=== PATIENT | female | born 1950 | race African-American/Black ===

== ENCOUNTER 2018-06-07 07:18 | Inpatient (IN) ==
--- NOTE | 2018-06-07 08:03 | ED ---
HPI General Chief Complaint: Shortness of Breath/Dyspnea Stated Complaint: resp Time Seen by Provider: 06/07/18 07:23 History of Present Illness The patient was seen and examined in the presence of the nurse. This patient complains of shortness of breath. Duration is 2 days. She reports that she has had CHF exacerbations before and feel like this is the same thing. She is a dialysis patient who is supposed to dialyze today. She did not make it to dialysis. This morning she was trying to get to the bathroom and having diarrhea and was short of breath so called 911. She has had diarrhea for 3 weeks now and had negative stool studies per her report. Is not having chest pain or syncope or abdominal pain. She does have a dry cough. No fever. Symptom severity is moderate. No alleviating factors. She is a smoker. No exacerbating factors. Related Data Home Medications Medication Instructions Recorded Confirmed hydralazine 100 mg PO DAILY 04/22/18 06/07/18 hydrocodone-acetaminophen 1 tab PO Q4HR 04/22/18 06/07/18 labetalol 300 mg PO DAILY 04/22/18 06/07/18 omeprazole 20 mg PO DAILY 04/22/18 06/07/18 sevelamer carbonate [Renvela] 800 mg PO QID 04/22/18 06/07/18 Previous Rx's Medication Instructions Recorded oxycodone-acetaminophen [Percocet] 1 tab PO Q4HR #40 tab 04/22/18 Allergies Allergy/AdvReac Type Severity Reaction Status Date / Time Penicillins Allergy Rash Verified 06/07/18 07:35 Review of Systems ROS: all other systems reviewed are negative [facility] Medical History Medical History A-V fistula (Acute) COPD (chronic obstructive pulmonary disease) (Acute) History of blood product transfusion (Acute) Pacemaker (Acute) Renal failure (Acute) Social History Social History Substance History: No History of Abuse Second Hand Smoke Exposure: No Smoking Status: Current every day smoker Tobacco Type: Cigarettes How Often Do You Have a Drink Containing Alcohol: Never Recent Travel in [facility] within the Last 8 Weeks: No Recent Out of Country Travel within the Last 8 Weeks: No Immunization History Tetanus Immunization: >5 Years Exam Narrative Exam Narrative: GENERAL: Well-nourished, well-developed patient in no apparent distress. SKIN: Focused skin assessment reveals no rash and nodules. Skin is Warm and dry. HEAD: Atraumatic. Normocephalic. EYES: Pupils equal and round. No scleral icterus. No injection or drainage. ENT: No nasal bleeding or discharge. Mucous membranes pink and moist. NECK: Trachea midline. No JVD. CARDIOVASCULAR: Regular rate and rhythm that is intermittently irregular or having ectopic beats. No murmur appreciated. RESPIRATORY: No accessory muscle use. Scattered rhonchi . Breath sounds equal bilaterally. GASTROINTESTINAL: Abdomen soft, non-tender, nondistended. Hepatic and splenic margins not palpable. MUSCULOSKELETAL: No obvious deformities. No clubbing. No cyanosis. No edema. NEUROLOGICAL: Awake and alert. No obvious cranial nerve deficits. Motor grossly within normal limits. Normal speech. PSYCHIATRIC: Appropriate mood and affect; insight and judgment seems a bit weak. Course Initial Documented Vital Signs Temperature 98.0 F 06/07/18 07:25 Pulse Rate 96 H 06/07/18 07:25 Respiratory Rate 24 06/07/18 07:25 Blood Pressure 130/76 06/07/18 07:25 Pulse Oximetry 99 06/07/18 07:25 Last Documented Vital Signs Temperature 98.0 F 06/07/18 07:25 Pulse Rate 69 06/07/18 09:14 Respiratory Rate 20 06/07/18 09:14 Blood Pressure 141/69 H 06/07/18 09:14 Pulse Oximetry 97 06/07/18 09:14 Medical Decision Making [facility] Narrative Medical decision making narrative: 67-year-old dialysis patient who came here instead of going to dialysis due to shortness of breath and she was feeling lightheaded after some diarrhea. I have ordered some studies to include lab studies and EKG and chest x-ray. She has no basilar crackles nor peripheral edema. Chest x-ray does show moderate congestive failure. She will need dialysis to fix this. I placed multiple calls to her rn chemical dependency Dr. Leigh and they have not been returned so far. I spoke with the hospitalist Dr. Oden who will admit, he recommends admit status, he will call the rn chemical dependency on cell phone. Patient has anemia and renal failure as expected. She also has some thrombocytopenia. Medical Screen Exam Complete: Yes Emergency Medical Condition: Yes Differential Diagnosis Differential Diagnosis: Pulmonary edema, pneumonia, COPD Medical Records Medical records reviewed: Yes I reviewed the patient's medical records. Lab Data Lab results reviewed: Yes I reviewed the patient's lab results. Lab results narrative: She has anemia and renal failure Result diagrams: 06/07/18 07:55 06/07/18 07:55 Lab Results 06/07/18 06/07/18 06/07/18 Range/Units 07:55 07:55 07:55 WBC 8.0 (4.0-11.0) th/mm3 RBC 3.19 L (4.00-5.30) mil/mm3 Hgb 10.3 L (11.6-15.3) gm/dL Hct 31.8 L (35.0-46.0) % MCV 99.6 (80.0-100.0) fL MCH 32.4 (27.0-34.0) pg MCHC 32.5 (32.0-36.0) % RDW 16.3 (11.6-17.2) % Plt Count 122 L (150-450) th/mm3 MPV 9.0 (7.0-11.0) fL Neut % (Auto) 86.4 H (16.0-70.0) % Lymph % (Auto) 4.9 L (9.0-44.0) % Maries % (Auto) 8.2 H (0.0-8.0) % Eos % (Auto) 0.2 (0.0-4.0) % Baso % (Auto) 0.3 (0.0-2.0) % Neut # (Auto) 6.9 (1.8-7.7) th/mm3 Lymph # (Auto) 0.4 L (1.0-4.8) th/mm3 Maries # (Auto) 0.7 (0.0-0.9) th/mm3 Eos # (Auto) 0.0 (0.0-0.4) th/mm3 Baso # (Auto) 0.0 (0.0-0.2) th/mm3 WBC Differential . Differential Comment Auto diff final Sodium 140 (136-145) meq/L Potassium 4.2 (3.5-5.1) meq/L Chloride 109 H (98-107) meq/L Carbon Dioxide 21.5 (21.0-32.0) meq/L Anion Gap 10 (5-15) meq/L BUN 29 H (7-18) mg/dL Creatinine 8.24 H (0.50-1.00) mg/dL Estimated GFR 6 L (>89) mL/min Random Glucose 127 H (74-106) mg/dL Calcium 9.1 (8.5-10.1) mg/dL Total Bilirubin 0.8 (0.2-1.0) mg/dL AST 14 L (15-37) U/L ALT 20 (10-53) U/L Alkaline Phosphatase 256 H (45-117) U/L Total Creatine Kinase 31 Cancelled (26-192) U/L Troponin I 0.07 H (0.02-0.05) ng/mL B-Natriuretic Peptide (0-100) pg/mL Total Protein 6.7 (6.4-8.2) g/dL Albumin 2.9 L (3.4-5.0) g/dL 06/07/18 Range/Units 07:55 WBC (4.0-11.0) th/mm3 RBC (4.00-5.30) mil/mm3 Hgb (11.6-15.3) gm/dL Hct (35.0-46.0) % MCV (80.0-100.0) fL MCH (27.0-34.0) pg MCHC (32.0-36.0) % RDW (11.6-17.2) % Plt Count (150-450) th/mm3 MPV (7.0-11.0) fL Neut % (Auto) (16.0-70.0) % Lymph % (Auto) (9.0-44.0) % Maries % (Auto) (0.0-8.0) % Eos % (Auto) (0.0-4.0) % Baso % (Auto) (0.0-2.0) % Neut # (Auto) (1.8-7.7) th/mm3 Lymph # (Auto) (1.0-4.8) th/mm3 Maries # (Auto) (0.0-0.9) th/mm3 Eos # (Auto) (0.0-0.4) th/mm3 Baso # (Auto) (0.0-0.2) th/mm3 WBC Differential Differential Comment Sodium (136-145) meq/L Potassium (3.5-5.1) meq/L Chloride (98-107) meq/L Carbon Dioxide (21.0-32.0) meq/L Anion Gap (5-15) meq/L BUN (7-18) mg/dL Creatinine (0.50-1.00) mg/dL Estimated GFR (>89) mL/min Random Glucose (74-106) mg/dL Calcium (8.5-10.1) mg/dL Total Bilirubin (0.2-1.0) mg/dL AST (15-37) U/L ALT (10-53) U/L Alkaline Phosphatase (45-117) U/L Total Creatine Kinase (26-192) U/L Troponin I (0.02-0.05) ng/mL B-Natriuretic Peptide 4534 H (0-100) pg/mL Total Protein (6.4-8.2) g/dL Albumin (3.4-5.0) g/dL Imaging Data Attestation: I personally reviewed and interpreted this imaging study as follows : My impression: X-ray shows moderate congestive failure Radiologist's impression: Chest X-Ray 06/07/18 07:49 CONCLUSION: Moderate congestive failure ECG Data EKG Prior to Arrival: No Attestation: I personally reviewed and interpreted this ECG as follows: Prior ECG tracings: not available for review Interpretation: EKG shows a rhythm of 75. ND interval 168 ms. She has pacer spikes throughout. QRS is wide-complex in inferior and lateral leads. Rhythm is irregular and difficult to ascertain. Discharge Plan Discharge Order Discharge Orders: ED Use Only Admit Order (Routine); Ordered 06/07/18 Ordered By: Ilia Briseno Physicians Team ED Provider: Ilia Briseno Primary Care Provider: Luis Bryant Rxs /Orders / Referrals /Forms Prescriptions: No Action hydrocodone-acetaminophen 10-325 mg Tablet 1 tab PO Q4HR RF: 0 hydralazine 100 mg Tablet 100 mg PO DAILY RF: 0 omeprazole 20 mg Capsule,Delayed Release(Dr/Ec) 20 mg PO DAILY RF: 0 labetalol 300 mg Tablet 300 mg PO DAILY RF: 0 sevelamer carbonate [Renvela] 800 mg Tablet 800 mg PO QID RF: 0 oxycodone-acetaminophen [Percocet] 5-325 mg Tablet 1 tab PO Q4HR Qty: 40 RF: 0 Discharge Interventions Interventions: Vital Signs Last Done: 06/07/18 09:14 Status ED Status: Admitted Patient
[2018-06-07 08:07] LABS: Baso % (Auto) 0.3 % (0.0-2.0); Eos % (Auto) 0.2 % (0.0-4.0); Hematocrit 31.8 % (35.0-46.0); Hemoglobin 10.3 gm/dL (11.6-15.3); Lymph # (Auto) 0.4 th/mm3 (1.0-4.8); Lymph % (Auto) 4.9 % (9.0-44.0); Mean Corpuscular HGB Conc 32.5 % (32.0-36.0); Mean Corpuscular Hemoglobin 32.4 pg (27.0-34.0); Mean Corpuscular Volume 99.6 fL (80.0-100.0); Mono # (Auto) 0.7 th/mm3 (0.0-0.9); Mono % (Auto) 8.2 % (0.0-8.0); Neut # (Auto) 6.9 th/mm3 (1.8-7.7); Neut % (Auto) 86.4 % (16.0-70.0); Platelet Count 122 th/mm3 (150-450); Red Blood Count 3.19 mil/mm3 (4.00-5.30); Red Cell Distribution Width 16.3 % (11.6-17.2)
[2018-06-07 08:20] LABS: Albumin 2.9 g/dL (3.4-5.0); Anion Gap 10 meq/L (5-15); Aspartate Aminotransferase 14 U/L (15-37); Blood Urea Nitrogen 29 mg/dL (7-18); Calcium 9.1 mg/dL (8.5-10.1); Carbon Dioxide 21.5 meq/L (21.0-32.0); Chloride 109 meq/L (98-107); Glomerular Filtration Rate 6 mL/min (>89); Glucose,Random 127 mg/dL (74-106); Potassium 4.2 meq/L (3.5-5.1); Sodium 140 meq/L (136-145)
[2018-06-07 08:21] LABS: Alanine Aminotransferase 20 U/L (10-53)
[2018-06-07 08:23] LABS: Alkaline Phosphatase 256 U/L (45-117); Total Protein 6.7 g/dL (6.4-8.2)
[2018-06-07 08:25] LABS: Troponin I 0.07 ng/mL (0.02-0.05)
[2018-06-07 08:26] LABS: Creatine Kinase 31 U/L (26-192)
--- NOTE | 2018-06-07 08:45 | XR ---
EXAM DATE: 06/07/2018 8:41 AM EST AGE/SEX: 67 years / Female INDICATIONS: Shortness of breath. CLINICAL DATA: This is the patient's initial encounter. Patient reports that signs and symptoms have been present for 3 days and indicates a pain score of 0/10. MEDICAL/SURGICAL HISTORY: . Renal failure, chronic. Chronic obstructive pulmonary disease. Pace maker. . COMPARISON: [facility] [place], CHEST 1V SINGLE AP, 04/22/2018. . FINDINGS: Pacemaker implanted in the left chest. The heart is enlarged. Moderate interstitial edema is present progressed from the comparison study. There is no pleural effusion. The portion of the bony skeleton visualized is unremarkable. Vascular stent in the right upper extremity. CONCLUSION: Moderate congestive failure Electronically signed by: Francisco Woods MD Board Certified Radiologist 06/07/2018 8:43 AM EST
[2018-06-07] MEDS ORDERED: Acetaminophen 325 MG Tablet PO PRN ×2 (11:13→11:20)
[2018-06-07] MEDS ORDERED: Sod Chloride 0.9% Inj 1,000 ML IV.CONT PRN (11:20)
[2018-06-07] MEDS ORDERED: Heparin 10,000 UNITS/10 ML Vial (for IV use) OTHER PRN (11:20)
[2018-06-07] MEDS ORDERED: Albumin Human 25% Inj 100 ML IV.SIG PRN (11:20)
[2018-06-07] MEDS ORDERED: Sod Chloride 0.9% Inj 1,000 ML OTHER PRN ×2 (11:20)
[2018-06-07] MEDS: Heparin - SQ 10,000 UNITS/ML Vial SQ SCH ×2 (12:02→20:41)
--- NOTE | 2018-06-07 12:34 | ECG ---
Date Performed: 06/07/2018 Time Performed: 07:53:30 PTAGE: 67 years EKG: ELECTRONIC PACEMAKER WITH INTERMITTENT AV PACING ABNORMAL ECG PREVIOUS TRACING : 04/22/2018 10.03 DOCTOR: Kevan Rodriguez Interpretating Date/Time 06/07/2018 12:33:12
--- NOTE | 2018-06-07 14:14 | P.HPIM ---
History of Present Illness Primary Care Physician: Luis Bryant Chief Complaint: Shortness of breath History of Present Illness: The patient is a 67-year-old female with a past medical history of end-stage renal disease on dialysis and COPD on home oxygen who is presenting to the hospital with shortness of breath. The patient states that at 5 AM she woke up this morning not being able to breathe. She felt like she had too much fluid in her body. She started coughing a lot which caused some chest pain from all of the coughing fits. She said she was due for dialysis today but she was unable to make it to her appointment because she could not breathe. She was seen in dialysis and is breathing much better at this time. She states that she would like some nebulizers. She is also complaining of chronic pain and is requesting pain medications. She says that she does ambulate but she has a hard time with stairs because of pain. She states she continues to smoke cigarettes, about 1 a day. She does use salt in her diet and realizes that she needs to use less. She states that she is on 2 L of nasal cannula at home. Inpatient Certification Inpatient Certification: I certify that the inpatient services were ordered in accordance with Medicare regulations governing the order. This includes certification that hospital inpatient services are reasonable and necessary and in the case of services not specified as inpatient-only under 42 CFR 419.22(n), that they are appropriately provided as inpatient services in accordance to with the 2-midnight benchmark under 43 CFR 412.3(e) Estimated Total Length of Stay (Days): 2 Plans for Post Hospital Care: Home Review of Systems Review of Systems: all other systems reviewed are negative [facility] Medical History Medical History Hypertension (Acute) A-V fistula (Acute) COPD (chronic obstructive pulmonary disease) (Acute) History of blood product transfusion (Acute) Pacemaker (Acute) Renal failure (Acute) Surgical History Surgical History History of surgery on upper extremity (Acute) Family History Family History Other Breast cancer Lung cancer Social History Social History Substance History: No History of Abuse Second Hand Smoke Exposure: No Smoking Status: Current every day smoker Tobacco Type: Cigarettes How Often Do You Have a Drink Containing Alcohol: Never Recent Travel in [place] within the Last 8 Weeks: No Recent Out of Country Travel within the Last 8 Weeks: No Immunization History Tetanus Immunization: >5 Years Medications and Allergies Allergies Allergy/AdvReac Type Severity Reaction Status Date / Time Penicillins Allergy Rash Verified 06/07/18 07:35 Home Medications Medication Instructions Recorded Confirmed Type hydralazine 100 mg PO DAILY 04/22/18 06/07/18 History hydrocodone-acetaminophen 1 tab PO Q4HR 04/22/18 06/07/18 History labetalol 300 mg PO DAILY 04/22/18 06/07/18 History omeprazole 20 mg PO DAILY 04/22/18 06/07/18 History sevelamer carbonate [Renvela] 800 mg PO QID 04/22/18 06/07/18 History Active Medications: Active Medications Acetaminophen (Tylenol) 650 mg PO Q4H PRN PRN Reason: Temp > 100.4, p 1-2 Acetaminophen (Tylenol) 650 mg PO UNSCH PRN PRN Reason: SEE LABEL COMMENTS Clonidine HCl (Catapres) 0.1 mg PO UNSCH PRN PRN Reason: SEE LABEL COMMENTS Diphenhydramine HCl (Benadryl) 25 mg PO UNSCH PRN PRN Reason: SEE LABEL COMMENTS Epoetin Vikram (Epogen Inj) 2,000 unit IV.PUSH UNSCH PRN PRN Reason: SEE LABEL COMMENTS Gelatin (Gelfoam 12 Mm/7 Mm Topical) 1 foam TOPICAL PRN PRN PRN Reason: help stop bleeding from site Heparin Sodium (Porcine) (Heparin Inj) 5,000 units SQ Q8H PATRICIA Last Admin: 06/07/18 12:02 Dose: 5,000 units Heparin Sodium (Porcine) (Heparin Inj) 8,000 units OTHER WITH DIALYSIS PRN PRN Reason: for machine prime Hydralazine HCl (Apresoline) 100 mg PO DAILY [facility] Albumin Human (Flexbumin 25% Inj) 100 mls @ 60 mls/hr IV.SIG WITH DIALYSIS PRN PRN Reason: hypotension / volume replace Sodium Chloride (Ns Inj) 1,000 mls @ 0 mls/hr OTHER .Q0M PRN PRN Reason: for prime and rinse back Sodium Chloride (Ns Inj) 1,000 mls @ 200 mls/hr OTHER .Q5H PRN PRN Reason: for dialyzer flush PRN Sodium Chloride (Ns Inj) 1,000 mls @ 0 mls/hr IV.CONT .Q0M PRN PRN Reason: hypotension / volume replace Labetalol HCl (Trandate) 300 mg PO DAILY [facility] Lactulose (Lactulose Liq) 30 ml PO DAILY PRN PRN Reason: SEVERE CONSITIPATION Mannitol (Mannitol Inj) 12.5 gm IV.PUSH UNSCH PRN PRN Reason: hypotension / volume replace Nitroglycerin (Nitrostat Sl) 0.4 mg SL Q5M PRN PRN Reason: CHEST PAIN Ondansetron HCl (Zofran Inj) 4 mg IV.PUSH UNSCH PRN PRN Reason: NAUSEA OR VOMITING Pantoprazole Sodium (Protonix) 20 mg PO DAILY [facility] Senna/Docusate Sodium (Mary-Colace) 1 tab PO BID [facility] Sevelamer Carbonate (Renvela) 800 mg PO QID [facility] Last Admin: 06/07/18 13:49 Dose: Not Given Sodium Chloride (Ns Flush) 2 ml IV.FLUSH PRN PRN PRN Reason: FLUSH AFTER USING IV ACCESS Sodium Chloride (Ns Flush) 2 ml IV.FLUSH BID PATRICIA Sodium Chloride (Ns Flush) 5 ml IV.FLUSH PRN PRN PRN Reason: flush each lumen during HD Physical Exam Vital signs: Vital Signs 06/07/18 07:25 06/07/18 08:03 06/07/18 08:04 Temperature 98.0 F Pulse Rate 96 H 90 Respiratory Rate 24 Blood Pressure 130/76 Pulse Oximetry 99 97 06/07/18 09:14 06/07/18 11:33 06/07/18 11:45 Temperature Pulse Rate 69 64 Respiratory Rate 20 20 Blood Pressure 141/69 H 143/87 H Pulse Oximetry 97 97 97 Intake & Output 06/06/18 06/07/18 06/07/18 18:59 06:59 18:59 Weight 58.967 kg Narrative: GENERAL: Well-nourished, well-developed patient in no apparent distress. SKIN: Focused skin assessment reveals no rash and nodules. Skin is warm and dry. HEAD: Atraumatic. Normocephalic. EYES: Pupils equal and round. No scleral icterus. No injection or drainage. ENT: No nasal bleeding or discharge. Mucous membranes pink and moist. NECK: Trachea midline. No JVD. CARDIOVASCULAR: Regular rate and rhythm. No murmur appreciated. RESPIRATORY: No accessory muscle use. Wheezing appreciated. GASTROINTESTINAL: Abdomen soft, mildly tender, nondistended. Hepatic and splenic margins not palpable. MUSCULOSKELETAL: No obvious deformities. No clubbing. No cyanosis. No edema. NEUROLOGICAL: Awake and alert. No obvious cranial nerve deficits. Motor grossly within normal limits. Normal speech. Results Labs CBC & Chem 7: 06/07/18 07:55 06/07/18 07:55 Imaging Impressions Chest X-Ray 06/07/18 07:49 CONCLUSION: Moderate congestive failure Caprini VTE Risk Assessment Caprini VTE Risk Assessment: Moderate/High Risk (score >= 2) Caprini Risk Assessment Model: Point Value = 1 Point Value = 2 Point Value = 3 Point Value = 5 Age 41-60 Minor surgery BMI > 25 kg/m2 Swollen legs Varicose veins or History of unexplained or recurrent spontaneous Oral contraceptives or hormone replacement Sepsis (< 1 month) Serious lung disease, including pneumonia (< 1 month) Abnormal pulmonary function Acute myocardial infarction Congestive heart failure (< 1 month) History of inflammatory bowel disease Medical patient at bed rest Age 61-74 Arthroscopic surgery Major open surgery (> 45 min) Laparoscopic surgery (> 45 min) Malignancy Confined to bed (> 72 hours) Immobilizing plaster cast Central venous access Age >= 75 History of VTE Family history of VTE Factor V Leiden Prothrombin [id number] Lupus anticoagulant Anticardiolipin antibodies Elevated serum homocysteine Heparin-induced thrombocytopenia Other congenital or acquired thrombophilia Stroke (< 1 month) Elective arthroplasty Hip, pelvis, or leg fracture Acute spinal cord injury (< 1 month) Prophylaxis Regimen: Total Risk Factor Score Risk Level Prophylaxis Regimen 0-1 Low Early ambulation 2 Moderate Order ONE of the following: *Sequential Compression Device (SCD) *Heparin 5000 units SQ BID 3-4 Higher Order ONE of the following medications: *Heparin 5000 units SQ TID *Enoxaparin/Lovenox 40 mg SQ daily (WT < 150 kg, CrCl > 30 mL/min) *Enoxaparin/Lovenox 30 mg SQ daily (WT < 150 kg, CrCl > 10-29 mL/min) *Enoxaparin/Lovenox 30 mg SQ BID (WT < 150 kg, CrCl > 30 mL/min) AND/OR *Sequential Compression Device (SCD) 5 or more Highest Order ONE of the following medications: *Heparin 5000 units SQ TID (Preferred with Epidurals) *Enoxaparin/Lovenox 40 mg SQ daily (WT < 150 kg, CrCl > 30 mL/min) *Enoxaparin/Lovenox 30 mg SQ daily (WT < 150 kg, CrCl > 10-29 mL/min) *Enoxaparin/Lovenox 30 mg SQ BID (WT < 150 kg, CrCl > 30 mL/min) AND *Sequential Compression Device (SCD) Assessment and Plan Plan Acute respiratory failure Secondary to volume overload from renal failure. Chest x-ray with moderate congestive failure. BNP elevated at 4534. She also has COPD and is on home oxygen. -Continue oxygen. -Dialysis for volume management. -Standing nebs. -Incentive spirometry. -Smoking cessation instruction. End-stage renal disease On dialysis. Nephrology consult appreciated. -Dialysis per nephrology. -Avoid nephrotoxins. -Continue Renvela. Chest pain The patient attributes it to coughing with her episode of severe shortness of breath. Initial troponin 0 0.07. EKG demonstrates a paced rhythm. -Trend troponins. -Telemetry. Hypertension Relatively well controlled. -Continue home hydralazine and labetalol. Anemia Secondary to end-stage renal disease. -Follow CBC. -Epogen as needed with dialysis. Hepatitis B Dialysis nurses reporting that the patient may be positive for hepatitis B. -Hepatitis profile pending. PPx: Heparin
[2018-06-07] MEDS ORDERED: LORazepam 0.5 MG Tablet PO PRN (15:24)
[2018-06-07] MEDS: Gelatin 12 MM/7 MM Topical Foam TOPICAL PRN (15:37)
[2018-06-07 16:05] LABS: ABG Base Excess 5.5 mmol/L (-2-2); ABG PCO2 33 mmHg (38-42); ABG PO2 40 mmHG (61-120)
--- NOTE | 2018-06-07 16:53 | P.CONNP ---
History of Present Illness Service: Nephrology Consult date: 06/07/18 Requesting Physician: Sanchez Kelley Reason for Consult: End-stage renal disease Primary Care Provider: Luis Bryant Chief Complaint: Shortness of breath History of Present Illness: Patient is a 67-year-old female with history of end-stage renal disease on dialysis, COPD, CHF, came in with increasing shortness of breath and was on BiPAP, patient goes on dialysis Thursday, Thursday and Thursday, she has a AV fistula in place, she was seen at the end of dialysis and was feeling better. Ultrafiltration of 3.5 L done. Review of Systems Constitutional: Reports body ache(s) Eyes: Denies blind spots, Denies blurry vision, Denies bulging eyes, Denies change in vision, Denies double vision, Denies discharge, Denies dry eyes, Denies floaters, Denies irritation, Denies itchy eyes, Denies loss of vision, Denies pain, Denies requires corrective lenses, Denies sensitivity to light, Denies other Ears, Nose, Mouth, and Throat: Denies abnormal hearing, Denies bleeding gums, Denies bad breath, Denies change in voice, Denies dental pain, Denies difficulty swallowing, Denies dizziness, Denies dry mouth, Denies ear discharge , Denies ear pain, Denies facial pain, Denies headache(s), Denies hearing loss, Denies hoarseness, Denies lip swelling, Denies nosebleed, Denies mouth lesions, Denies mouth pain, Denies nasal congestion, Denies nasal discharge, Denies nasal obstruction, Denies nasal trauma, Denies neck lump, Denies neck pain, Denies nose pain, Denies pain with swallowing, Denies poor balance, Denies post nasal drip, Denies ringing in the ears, Denies sinus pain, Denies sinus pressure , Denies sore throat, Denies throat swelling, Denies tongue swelling, Denies other Cardiovascular: Reports generalized swelling, Reports shortness of breath with activity Respiratory: Reports shortness of breath Genitourinary: Reports other (On dialysis) Musculoskeletal: Reports joint pain Skin/Breast: Reports other Neurologic: Reports weakness, Denies abnormal hearing, Denies abnormal movements , Denies abnormal speech, Denies abnormal walking, Denies behavioral changes, Denies burning sensations, Denies confusion, Denies dizziness, Denies fainting, Denies frequent falls, Denies headache(s), Denies lack of coordination, Denies localized weakness, Denies loss of vision, Denies memory loss, Denies numbness, Denies other visual disturbances, Denies radiating pain, Denies restless legs, Denies convulsions, Denies seizure-like activity, Denies sensory deficit, Denies tingling, Denies tingling/numbness/burning sensations, Denies tremor(s), Denies unsteadiness, Denies other Psychiatric: Denies abnormal sleep pattern, Denies anxiety, Denies behavioral changes, Denies change in appetite, Denies change in sex drive, Denies confusion , Denies depression, Denies difficulty concentrating, Denies hearing things others do not hear, Denies hopelessness, Denies irritability, Denies lack of enjoyment, Denies memory loss, Denies mood swings, Denies panic attacks, Denies paranoia, Denies seeing things others do not see, Denies sensing things others do not sense, Denies tactile hallucinations, Denies thoughts of hurting/killing others, Denies thoughts of hurting/killing yourself, Denies other Endocrine: Denies cold intolerance, Denies excessive sweating, Denies flushing, Denies heat intolerance, Denies increased hunger, Denies increased thirst, Denies increased urination, Denies rapid, pounding, or irregular heartbeat, Denies other Hematologic/Lymphatic: Denies easy bleeding, Denies easy bruising, Denies enlarged lymph nodes, Denies other Allergic/Immunologic: Denies GI upset with certain foods, Denies hives, Denies itchy eyes, Denies lip swelling, Denies seasonal runny nose, Denies throat swelling, Denies tongue swelling, Denies wheezing, Denies other PMFSH - History History Provided By: Patient - Medical History Medical History: Medical History (Last Reviewed 06/07/18 @ 16:44 by Jose Wolfe MD) Hypertension A-V fistula COPD (chronic obstructive pulmonary disease) History of blood product transfusion Pacemaker Renal failure - Surgical History Surgical History: Surgical History (Last Reviewed 06/07/18 @ 16:44 by Jose Wolfe MD) History of surgery on upper extremity - Family History Family History: Family History (Last Reviewed 06/07/18 @ 16:44 by Jose Wolfe MD) Other Breast cancer Lung cancer - Tobacco History Second Hand Smoke Exposure: No Tobacco Use In Past 30 Days: Yes Smoking Status: Current every day smoker Tobacco Type: Cigarettes - Alcohol History How Often Do You Have a Drink Containing Alcohol: Never - Substance Use History Substance History: No History of Abuse - Travel History Recent Travel in the [place] Within the Last 8 Weeks: No Recent Travel Out of the Country Within the Last 8 Weeks: No - Immunization History Tetanus Immunization: >5 Years Medications and Allergies Active Medications: Active Medications Acetaminophen (Tylenol) 650 mg PO Q4H PRN PRN Reason: Temp > 100.4, p 1-2 Acetaminophen (Tylenol) 650 mg PO UNSCH PRN PRN Reason: SEE LABEL COMMENTS Albuterol (Duoneb Neb (Niurka)) 1 ampul NEB Q6HR NEB NIURKA Last Admin: 06/07/18 15:21 Dose: 1 ampul Clonidine HCl (Catapres) 0.1 mg PO UNSCH PRN PRN Reason: SEE LABEL COMMENTS Diphenhydramine HCl (Benadryl) 25 mg PO UNSCH PRN PRN Reason: SEE LABEL COMMENTS Epoetin Vikram (Epogen Inj) 2,000 unit IV.PUSH UNSCH PRN PRN Reason: SEE LABEL COMMENTS Last Admin: 06/07/18 15:36 Dose: 2,000 unit Gelatin (Gelfoam 12 Mm/7 Mm Topical) 1 foam TOPICAL PRN PRN PRN Reason: help stop bleeding from site Last Admin: 06/07/18 15:37 Dose: 1 foam Heparin Sodium (Porcine) (Heparin Inj) 5,000 units SQ Q8H NIURKA Last Admin: 06/07/18 12:02 Dose: 5,000 units Heparin Sodium (Porcine) (Heparin Inj) 8,000 units OTHER WITH DIALYSIS PRN PRN Reason: for machine prime Hydralazine HCl (Apresoline) 100 mg PO DAILY [facility] Albumin Human (Flexbumin 25% Inj) 100 mls @ 60 mls/hr IV.SIG WITH DIALYSIS PRN PRN Reason: hypotension / volume replace Sodium Chloride (Ns Inj) 1,000 mls @ 0 mls/hr OTHER .Q0M PRN PRN Reason: for prime and rinse back Sodium Chloride (Ns Inj) 1,000 mls @ 200 mls/hr OTHER .Q5H PRN PRN Reason: for dialyzer flush PRN Sodium Chloride (Ns Inj) 1,000 mls @ 0 mls/hr IV.CONT .Q0M PRN PRN Reason: hypotension / volume replace Labetalol HCl (Trandate) 300 mg PO DAILY NIURKA Lactulose (Lactulose Liq) 30 ml PO DAILY PRN PRN Reason: SEVERE CONSITIPATION Lorazepam (Ativan) 0.5 mg PO Q6H PRN PRN Reason: ANXIETY Mannitol (Mannitol Inj) 12.5 gm IV.PUSH UNSCH PRN PRN Reason: hypotension / volume replace Nitroglycerin (Nitrostat Sl) 0.4 mg SL Q5M PRN PRN Reason: CHEST PAIN Ondansetron HCl (Zofran Inj) 4 mg IV.PUSH UNSCH PRN PRN Reason: NAUSEA OR VOMITING Oxycodone/Acetaminophen (Percocet 10/325 Mg) 1 tab PO Q4H PRN PRN Reason: pain scale 6-10 Oxycodone/Acetaminophen (Percocet 5/325 Mg) 1 tab PO Q4H PRN PRN Reason: pain scale 3-5 Pantoprazole Sodium (Protonix) 20 mg PO DAILY [facility] Senna/Docusate Sodium (Mary-Colace) 1 tab PO BID [facility] Sevelamer Carbonate (Renvela) 800 mg PO QID [facility] Last Admin: 06/07/18 13:49 Dose: Not Given Sodium Chloride (Ns Flush) 2 ml IV.FLUSH PRN PRN PRN Reason: FLUSH AFTER USING IV ACCESS Sodium Chloride (Ns Flush) 2 ml IV.FLUSH BID [facility] Sodium Chloride (Ns Flush) 5 ml IV.FLUSH PRN PRN PRN Reason: flush each lumen during HD Allergies Allergy/AdvReac Type Severity Reaction Status Date / Time Penicillins Allergy Rash Verified 06/07/18 07:35 Home Medications Medication Instructions Recorded Confirmed Type hydralazine 100 mg PO DAILY 04/22/18 06/07/18 History hydrocodone-acetaminophen 1 tab PO Q4HR 04/22/18 06/07/18 History labetalol 300 mg PO DAILY 04/22/18 06/07/18 History omeprazole 20 mg PO DAILY 04/22/18 06/07/18 History sevelamer carbonate [Renvela] 800 mg PO QID 04/22/18 06/07/18 History Exam Vital signs: Vital Signs 06/07/18 07:25 06/07/18 08:03 06/07/18 08:04 Temperature 98.0 F Pulse Rate 96 H 90 Respiratory Rate 24 Blood Pressure 130/76 Pulse Oximetry 99 97 06/07/18 09:14 06/07/18 11:33 06/07/18 11:45 Temperature Pulse Rate 69 64 Respiratory Rate 20 20 Blood Pressure 141/69 H 143/87 H Pulse Oximetry 97 97 97 06/07/18 15:21 06/07/18 15:50 Temperature Pulse Rate 70 Respiratory Rate 25 H Blood Pressure Pulse Oximetry 92 L 97 Intake & Output 06/06/18 06/07/18 06/07/18 18:59 06:59 18:59 Output Total 3500 / 3500 Balance -3500 / -3500 Weight 58.967 kg Output: Hemodialysis Amount 3500 / 3500 Narrative: GENERAL: Well-nourished, well-developed patient. SKIN: Warm and dry. HEAD: Normocephalic. EYES: No scleral icterus. No injection or drainage. NECK: Supple, trachea midline. No JVD or lymphadenopathy. CARDIOVASCULAR: Regular rate and rhythm without murmurs, gallops, or rubs. RESPIRATORY: Breath sounds diminished at bases GASTROINTESTINAL: Abdomen soft, non-tender, nondistended. EXTREMITIES: Mild edema NEUROLOGICAL: Awake, alert, and oriented x 3. Non-focal. Results - Lab Results 06/07/18 07:55 06/07/18 07:55 Most recent lab results ABG pH 7.55 (7.380-7.420) H* 06/07/18 15:20 ABG pCO2 33 mmHg (38-42) L 06/07/18 15:20 ABG pO2 40 mmHG (61-120) L* 06/07/18 15:20 ABG HCO3 28 mmol/L (22-26) H 06/07/18 15:20 Calcium 9.1 mg/dL (8.5-10.1) 06/07/18 07:55 Assessment and Plan - Assessment (1) End-stage renal disease (ESRD) Code(s): N18.6 - End stage renal disease Status: Acute Plan: Patient seen at the end of dialysis 3.5 L removed tolerated well breathing has improved, patient is told about watching her fluid intake and salt intake continue to monitor while in the hospital next dialysis on Thursday (2) Hypertension Code(s): I10 - Essential (primary) hypertension Status: Acute Plan: Continue to monitor blood pressure (3) Pulmonary edema Code(s): J81.1 - Chronic pulmonary edema Status: Acute Plan: Resolved after dialysis (2) Hypertension Qualifiers: Hypertension type: essential hypertension Qualified Code(s): I10 - Essential (primary) hypertension
[2018-06-07] MEDS: oxyCODONE/Acetaminophen 10/325 Tablet PO PRN (17:58)
[2018-06-07 18:12] LABS: Hepatitis A IgM Antibody Nonreactive (Nonreactive); Hepatitits B Surface Antigen Nonreactive (Nonreactive)
[2018-06-07] MEDS: Senna/Docusate Sodium 8.6/50 MG Tablet PO SCH (20:41)
[2018-06-08 03:38] LABS: Baso % (Auto) 0.5 % (0.0-2.0); Eos % (Auto) 0.2 % (0.0-4.0); Hematocrit 29.5 % (35.0-46.0); Hemoglobin 9.8 gm/dL (11.6-15.3); Lymph # (Auto) 0.7 th/mm3 (1.0-4.8); Mean Corpuscular HGB Conc 33.3 % (32.0-36.0); Mean Corpuscular Hemoglobin 33.2 pg (27.0-34.0); Mean Corpuscular Volume 99.7 fL (80.0-100.0); Mean Platelet Volume 8.8 fL (7.0-11.0); Mono # (Auto) 0.3 th/mm3 (0.0-0.9); Neut # (Auto) 5.1 th/mm3 (1.8-7.7); Neut % (Auto) 83.3 % (16.0-70.0); Platelet Count 118 th/mm3 (150-450); Red Blood Count 2.95 mil/mm3 (4.00-5.30); Red Cell Distribution Width 15.5 % (11.6-17.2); White Blood Count 6.1 th/mm3 (4.0-11.0)
[2018-06-08] MEDS: oxyCODONE/Acetaminophen 10/325 Tablet PO PRN ×5 (03:48→22:15)
[2018-06-08 04:05] LABS: Alanine Aminotransferase 14 U/L (10-53); Albumin 2.9 g/dL (3.4-5.0); Alkaline Phosphatase 239 U/L (45-117); Anion Gap 8 meq/L (5-15); Aspartate Aminotransferase 12 U/L (15-37); Blood Urea Nitrogen 24 mg/dL (7-18); Calcium 9.1 mg/dL (8.5-10.1); Carbon Dioxide 29.1 meq/L (21.0-32.0); Chloride 101 meq/L (98-107); Glomerular Filtration Rate 10 mL/min (>89); Glucose,Random 131 mg/dL (74-106); Potassium 3.6 meq/L (3.5-5.1); Sodium 138 meq/L (136-145); Total Protein 6.7 g/dL (6.4-8.2)
[2018-06-08] MEDS: Heparin - SQ 10,000 UNITS/ML Vial SQ SCH ×3 (06:00→20:26)
[2018-06-08] MEDS: Pantoprazole Sodium 20 MG DR Tablet PO SCH (08:19)
[2018-06-08] MEDS: Senna/Docusate Sodium 8.6/50 MG Tablet PO SCH ×2 (08:20→20:27)
--- NOTE | 2018-06-08 11:14 | P.PNIM ---
Subjective Interval history: Follow-up for COPD exacerbation, ESRD. Patient is currently doing well. She is breathing well. Currently on nasal cannula. She underwent dialysis on 06/07/2018. Feels much better. However, she complains of diarrhea that has been going on for weeks. She gets diarrhea whenever she is not getting her pain medications. Physical Exam Vital signs: Vital Signs 06/07/18 11:33 06/07/18 11:45 06/07/18 15:21 Temperature Pulse Rate 64 70 Respiratory Rate 20 25 H Blood Pressure 143/87 H Pulse Oximetry 97 97 92 L 06/07/18 15:50 06/07/18 16:48 06/07/18 20:00 Temperature 97.4 F L Pulse Rate 81 Respiratory Rate 20 15 Blood Pressure 145/66 H 114/52 L Pulse Oximetry 97 100 100 06/07/18 21:15 06/08/18 00:00 06/08/18 04:00 Temperature 97.7 F 98.1 F Pulse Rate 68 115 H 115 H Respiratory Rate 18 14 17 Blood Pressure 116/60 108/58 L Pulse Oximetry 98 98 99 06/08/18 05:06 06/08/18 08:00 Temperature 97.3 F L Pulse Rate 66 66 Respiratory Rate 15 18 Blood Pressure 115/55 L Pulse Oximetry 96 Intake & Output 06/07/18 06/08/18 06/08/18 18:59 06:59 18:59 Intake Total 240 / 240 Output Total 3500 / 3500 Balance -3500 / -3500 240 / 240 Weight 58.967 kg 63.7 kg Intake: Oral 240 / 240 Output: Hemodialysis Amount 3500 / 3500 Other: Date of Last Bowel Movement 06/07/18 06/07/18 06/08/18 # Bowel Movements 2 Narrative: GENERAL: Well-nourished, well-developed patient. SKIN: Warm and dry. HEAD: Normocephalic. EYES: No scleral icterus. No injection or drainage. NECK: Supple, trachea midline. No JVD or lymphadenopathy. CARDIOVASCULAR: Regular rate and rhythm without murmurs, gallops, or rubs. RESPIRATORY: Breath sounds equal bilaterally. No accessory muscle use. GASTROINTESTINAL: Abdomen soft, non-tender, nondistended. MUSCULOSKELETAL: No cyanosis, or edema. BACK: Nontender without obvious deformity. No CVA tenderness. Results Labs CBC & Chem 7: 06/08/18 03:15 06/08/18 03:15 Assessment and Plan (1) End-stage renal disease (ESRD): Code(s): N18.6 - End stage renal disease Status: Acute (2) Hypertension: Code(s): I10 - Essential (primary) hypertension Status: Acute (3) Pulmonary edema: Code(s): J81.1 - Chronic pulmonary edema Status: Acute Plan The patient is a 67-year-old female with a past medical history of end-stage renal disease on dialysis and COPD on home oxygen who presented to the hospital on 06/07/2018 with shortness of breath. Chest x-ray showed congestion, BNP was elevated to 4500. Patient reported significant improvement after dialysis. Acute pulmonary edema End-stage renal disease Likely due to renal failure. Much improved. Currently patient is on nasal cannula oxygen. We will try to wean her off oxygen. Maintain Thursday dialysis. Hypertension Continue hydralazine, labetalol Diarrhea We will check C. difficile PCR If negative, we will consider antidiarrheal medications. Diarrhea could be due to opioid withdrawal. Patient is currently on Percocet as needed. Full code. Heparin subcutaneous for DVT prophylaxis. Discharge plan: Likely discharge after dialysis tomorrow. Progress Note: Quality VTE Deep Vein Thrombosis/Pulmonary Embolism Present on Admission: No _ (1) Pulmonary edema Qualifiers: Chronicity: (2) Hypertension Qualifiers: Hypertension type: essential hypertension Qualified Code(s): I10 - Essential (primary) hypertension
--- NOTE | 2018-06-08 15:58 | P.PNNP ---
Subjective Interval history: Improved shortness of breath. Does have some shortness of breath on exertion. <Dipti Conway - Last Filed: 06/08/18 15:49> Physical Exam Vital signs: Vital Signs 06/07/18 15:50 06/07/18 16:48 06/07/18 20:00 Temperature 97.4 F L Pulse Rate 81 Respiratory Rate 20 15 Blood Pressure 145/66 H 114/52 L Pulse Oximetry 97 100 100 06/07/18 21:15 06/08/18 00:00 06/08/18 04:00 Temperature 97.7 F 98.1 F Pulse Rate 68 115 H 115 H Respiratory Rate 18 14 17 Blood Pressure 116/60 108/58 L Pulse Oximetry 98 98 99 06/08/18 05:06 06/08/18 08:00 06/08/18 11:44 Temperature 97.3 F L Pulse Rate 66 66 72 Respiratory Rate 15 18 14 Blood Pressure 115/55 L Pulse Oximetry 96 06/08/18 11:50 06/08/18 12:00 Temperature 98 F Pulse Rate 69 Respiratory Rate 20 Blood Pressure 118/58 L Pulse Oximetry 98 97 Intake & Output 06/07/18 06/08/18 06/08/18 18:59 06:59 18:59 Intake Total 240 / 240 Output Total 3500 / 3500 Balance -3500 / -3500 240 / 240 Weight 58.967 kg 63.7 kg Intake: Oral 240 / 240 Output: Hemodialysis Amount 3500 / 3500 Other: Date of Last Bowel Movement 06/07/18 06/07/18 06/08/18 # Bowel Movements 2 Narrative: GENERAL: Well-nourished, well-developed patient. SKIN: Warm and dry. HEAD: Normocephalic. EYES: No scleral icterus. No injection or drainage. NECK: Supple, trachea midline. No JVD or lymphadenopathy. CARDIOVASCULAR: Regular rate and rhythm without murmurs, gallops, or rubs. AV fistula right upper extremity positive bruit and thrill. RESPIRATORY: Breath sounds diminished at bases with fine crackles heard. GASTROINTESTINAL: Abdomen soft, non-tender, nondistended. EXTREMITIES: No edema seen NEUROLOGICAL: Awake, alert, and oriented x 3. Non-focal. <ZoraidaDipti - Last Filed: 06/08/18 15:49> Vital signs: Vital Signs 06/07/18 21:15 06/08/18 00:00 06/08/18 04:00 Temperature 97.7 F 98.1 F Pulse Rate 68 115 H 115 H Respiratory Rate 18 14 17 Blood Pressure 116/60 108/58 L Pulse Oximetry 98 98 99 06/08/18 05:06 06/08/18 08:00 06/08/18 11:44 Temperature 97.3 F L Pulse Rate 66 66 72 Respiratory Rate 15 18 14 Blood Pressure 115/55 L Pulse Oximetry 96 06/08/18 11:50 06/08/18 12:00 06/08/18 16:00 Temperature 98 F 97.4 F L Pulse Rate 69 68 Respiratory Rate 20 20 Blood Pressure 118/58 L 138/71 Pulse Oximetry 98 97 100 06/08/18 16:26 06/08/18 17:35 Temperature Pulse Rate 80 Respiratory Rate 17 Blood Pressure Pulse Oximetry 99 Intake & Output 06/08/18 06/08/18 06/09/18 06:59 18:59 06:59 Intake Total 240 / 240 0 / 0 Balance 240 / 240 0 / 0 Weight 63.7 kg Intake: Oral 240 / 240 0 / 0 Other: Date of Last Bowel Movement 06/07/18 06/08/18 # Bowel Movements 2 1 <Jose Wolfe - Last Filed: 06/08/18 21:03> Assessment and Plan - Assessment (1) End-stage renal disease (ESRD) Code(s): N18.6 - End stage renal disease Status: Acute Plan: Dialysis yesterday 3.5 L removed Shortness of breath has improved, some shortness of breath on exertion, does have COPD She states that she has been eating salt out of her hand, she knows she should not be doing this but could not ignore the craving. -Reiterated the importance of watching her sodium intake. Should not be eating salt out of her hand. She knows that too much sodium retains fluid and she will end up back in the hospital. -She is aware to watch her fluid intake also, 32 ounces a day. 16 ounces Thursday, 16 ounces Thursday. -Dialysis is tomorrow. She may be discharged after dialysis if stable -Monitor volume status, electrolytes (2) Hypertension Code(s): I10 - Essential (primary) hypertension Status: Acute Qualifiers: Hypertension type: essential hypertension Qualified Code(s): I10 - Essential (primary) hypertension Plan: Controlled -Continue to monitor blood pressure (3) Pulmonary edema Code(s): J81.1 - Chronic pulmonary edema Status: Acute Plan: Resolved after dialysis <Dipti Conway - Last Filed: 06/08/18 15:49> - Assessment (1) End-stage renal disease (ESRD) Code(s): N18.6 - End stage renal disease Status: Acute (2) Hypertension Code(s): I10 - Essential (primary) hypertension Status: Acute Qualifiers: Hypertension type: essential hypertension Qualified Code(s): I10 - Essential (primary) hypertension (3) Pulmonary edema Code(s): J81.1 - Chronic pulmonary edema Status: Acute - Attending Attestation I agree with current assessment and plan, continue with hemodialysis Next dialysis tomorrow care discussed with ADRIENNE Resendez <Jose Wolfe - Last Filed: 06/08/18 21:03>
[2018-06-09] MEDS: oxyCODONE/Acetaminophen 10/325 Tablet PO PRN ×3 (03:05→21:30)
[2018-06-09] MEDS: Heparin - SQ 10,000 UNITS/ML Vial SQ SCH ×3 (03:06→21:31)
--- NOTE | 2018-06-09 10:23 | P.PNNP ---
Subjective Interval history: Patient complaining of shortness of breath while walking and remains on oxygen Patient seen during hemodialysis Physical Exam Vital signs: Vital Signs 06/08/18 11:44 06/08/18 11:50 06/08/18 12:00 Temperature 98 F Pulse Rate 72 69 Respiratory Rate 14 20 Blood Pressure 118/58 L Pulse Oximetry 98 97 06/08/18 16:00 06/08/18 16:26 06/08/18 17:35 Temperature 97.4 F L Pulse Rate 68 80 Respiratory Rate 20 17 Blood Pressure 138/71 Pulse Oximetry 100 99 06/08/18 20:00 06/08/18 21:46 06/08/18 23:15 Temperature 97.5 F L 97.9 F Pulse Rate 65 69 67 Respiratory Rate 20 17 20 Blood Pressure 99/51 L 112/63 Pulse Oximetry 98 99 100 06/09/18 00:00 06/09/18 03:46 06/09/18 04:00 Temperature Pulse Rate 65 71 67 Respiratory Rate 16 Blood Pressure Pulse Oximetry 100 06/09/18 05:00 06/09/18 08:00 06/09/18 08:13 Temperature 97.9 F 97.6 F Pulse Rate 67 72 79 Respiratory Rate 20 18 20 Blood Pressure 113/55 L 118/86 Pulse Oximetry 97 95 Intake & Output 06/08/18 06/09/18 06/09/18 18:59 06:59 18:59 Intake Total 0 / 0 0 / 0 Balance 0 / 0 0 / 0 Weight 64.9 kg Intake: Oral 0 / 0 0 / 0 Other: # Incontinent Voids 2 Date of Last Bowel Movement 06/08/18 06/08/18 # Bowel Movements 1 0 Narrative: GENERAL: Well-nourished, well-developed patient. SKIN: Warm and dry. HEAD: Normocephalic. EYES: No scleral icterus. No injection or drainage. NECK: Supple, trachea midline. No JVD or lymphadenopathy. CARDIOVASCULAR: Regular rate and rhythm without murmurs, gallops, or rubs. AV fistula right upper extremity positive bruit and thrill. RESPIRATORY: Breath sounds diminished at bases with fine crackles heard. GASTROINTESTINAL: Abdomen soft, non-tender, nondistended. EXTREMITIES: No edema seen NEUROLOGICAL: Awake, alert, and oriented x 3. Non-focal. Assessment and Plan - Assessment (1) End-stage renal disease (ESRD) Code(s): N18.6 - End stage renal disease Status: Acute Plan: Dialysis progress noted tolerating ultrafiltration of 3.5 L today on 3K bath Shortness of breath shortness of breath on exertion, does have COPD -Reiterated the importance of watching her sodium intake. Should not be eating salt out of her hand. She knows that too much sodium retains fluid and she will end up back in the hospital. -Continue to monitor (2) Hypertension Code(s): I10 - Essential (primary) hypertension Status: Acute Qualifiers: Hypertension type: essential hypertension Qualified Code(s): I10 - Essential (primary) hypertension Plan: Controlled -Continue to monitor blood pressure (3) Pulmonary edema Code(s): J81.1 - Chronic pulmonary edema Status: Acute Plan: Resolved after dialysis
[2018-06-09] MEDS: Gelatin 12 MM/7 MM Topical Foam TOPICAL PRN (12:10)
[2018-06-09] MEDS: Senna/Docusate Sodium 8.6/50 MG Tablet PO SCH ×2 (13:54→21:31)
[2018-06-09] MEDS: Pantoprazole Sodium 20 MG DR Tablet PO SCH (13:54)
[2018-06-09] MEDS ORDERED: Sodium Chlor 0.9% Inj 500 ML IV.SIG SCH (16:45)
--- NOTE | 2018-06-09 18:45 | P.PNIM ---
Subjective Interval history: Follow-up for COPD exacerbation, ESRD. Patient was seen and examined after she returned from dialysis today. She felt well. Was about to eat her lunch. However, later on her blood pressure dropped below 80 systolic. We discontinued our plan to discharge patient today. Physical Exam Vital signs: Vital Signs 06/08/18 20:00 06/08/18 21:46 06/08/18 23:15 Temperature 97.5 F L 97.9 F Pulse Rate 65 69 67 Respiratory Rate 20 17 20 Blood Pressure 99/51 L 112/63 Pulse Oximetry 98 99 100 06/09/18 00:00 06/09/18 03:46 06/09/18 04:00 Temperature Pulse Rate 65 71 67 Respiratory Rate 16 Blood Pressure Pulse Oximetry 100 06/09/18 05:00 06/09/18 08:00 06/09/18 08:13 Temperature 97.9 F 97.6 F Pulse Rate 67 72 79 Respiratory Rate 20 20 20 Blood Pressure 113/55 L 118/86 Pulse Oximetry 97 95 06/09/18 14:00 06/09/18 16:00 06/09/18 16:13 Temperature 97.6 F 98 F Pulse Rate 88 70 82 Respiratory Rate 18 20 18 Blood Pressure 100/55 L 88/49 L Pulse Oximetry 94 L Intake & Output 06/08/18 06/09/18 06/09/18 18:59 06:59 18:59 Intake Total 0 / 0 0 / 0 Output Total 3500 / 3500 Balance 0 / 0 0 / 0 -3500 / -3500 Weight 64.9 kg Intake: Oral 0 / 0 0 / 0 Output: Hemodialysis Amount 3500 / 3500 Other: # Incontinent Voids 2 Date of Last Bowel Movement 06/08/18 06/08/18 06/08/18 # Bowel Movements 1 0 Narrative: GENERAL: Well-nourished, well-developed patient. SKIN: Warm and dry. HEAD: Normocephalic. EYES: No scleral icterus. No injection or drainage. NECK: Supple, trachea midline. No JVD or lymphadenopathy. CARDIOVASCULAR: Regular rate and rhythm without murmurs, gallops, or rubs. RESPIRATORY: Breath sounds equal bilaterally. No accessory muscle use. GASTROINTESTINAL: Abdomen soft, non-tender, nondistended. MUSCULOSKELETAL: No cyanosis, or edema. BACK: Nontender without obvious deformity. No CVA tenderness. Results Labs CBC & Chem 7: 06/08/18 03:15 06/08/18 03:15 Assessment and Plan (1) End-stage renal disease (ESRD): Code(s): N18.6 - End stage renal disease Status: Acute (2) Hypertension: Code(s): I10 - Essential (primary) hypertension Status: Acute (3) Pulmonary edema: Code(s): J81.1 - Chronic pulmonary edema Status: Acute Plan The patient is a 67-year-old female with a past medical history of end-stage renal disease on dialysis and COPD on home oxygen who presented to the hospital on 06/07/2018 with shortness of breath. Chest x-ray showed congestion, BNP was elevated to 4500. Patient reported significant improvement after dialysis. Acute pulmonary edema End-stage renal disease Likely due to renal failure. Much improved. Currently patient is on nasal cannula oxygen. We will try to wean her off oxygen. Maintain Thursday dialysis. Hypertension Continue hydralazine, labetalol. Hold if systolic blood pressure less than 120. Hypotension -Post dialysis today, patient became hypotensive. -Will give 500cc of NS bolus. Diarrhea C. difficile PCR - Negative study. Diarrhea could be due to opioid withdrawal. Patient is currently on Percocet as needed. Full code. Heparin subcutaneous for DVT prophylaxis. Probable discharge in the AM if she remains stable. Progress Note: Quality VTE Deep Vein Thrombosis/Pulmonary Embolism Present on Admission: No _ (1) Hypertension Qualifiers: Hypertension type: essential hypertension Qualified Code(s): I10 - Essential (primary) hypertension (2) Pulmonary edema Qualifiers: Chronicity:
[2018-06-10] MEDS: Heparin - SQ 10,000 UNITS/ML Vial SQ SCH (06:01)
[2018-06-10] MEDS: oxyCODONE/Acetaminophen 10/325 Tablet PO PRN ×2 (06:07→10:09)
[2018-06-10 07:23] VITALS: RESP 17
[2018-06-10] MEDS: Senna/Docusate Sodium 8.6/50 MG Tablet PO SCH (09:21)
[2018-06-10] MEDS: Pantoprazole Sodium 20 MG DR Tablet PO SCH (09:22)
--- NOTE | 2018-06-10 09:56 | P.DS ---
DS: Providers Date of admission: 06/07/18 10:56 Primary care physician: Luis Bryant Consults: 06/07/18 11:10 Consult to Nephrology Routine Consulting Provider: Jose Wolfe Does the patient have a Cable Tv Installer who follows them?: Yes Preferred Nephrology [employer] Worker:: Jose Wolfe Reason for Consultation: ESRD on dialysis Notified:: Service Spoke with:: Abdulaziz Date Notified:: 06/07/18 Time Notified:: 12:03 Ordering Provider: DARLING Brief History from admission: The patient is a 67-year-old female with a past medical history of end-stage renal disease on dialysis and COPD on home oxygen who is presenting to the hospital with shortness of breath. The patient states that at 5 AM she woke up this morning not being able to breathe. She felt like she had too much fluid in her body. She started coughing a lot which caused some chest pain from all of the coughing fits. She said she was due for dialysis today but she was unable to make it to her appointment because she could not breathe. She was seen in dialysis and is breathing much better at this time. She states that she would like some nebulizers. She is also complaining of chronic pain and is requesting pain medications. She says that she does ambulate but she has a hard time with stairs because of pain. She states she continues to smoke cigarettes, about 1 a day. She does use salt in her diet and realizes that she needs to use less. She states that she is on 2 L of nasal cannula at home. DS: Diagnosis Discharge Diagnosis (1) End-stage renal disease (ESRD): Status: Acute (2) Hypertension: Status: Acute (3) Pulmonary edema: Status: Acute DS: Summary The patient is a 67-year-old female with a past medical history of end-stage renal disease on dialysis and COPD on home oxygen who presented to the hospital on 06/07/2018 with shortness of breath. Chest x-ray showed congestion, BNP was elevated to 4500. Patient reported significant improvement after dialysis. Acute pulmonary edema End-stage renal disease Likely due to renal failure. Much improved. Currently patient is on nasal cannula oxygen. Has O2 at home. Maintain Thursday dialysis. Hypertension Continue hydralazine, labetalol. Hold if systolic blood pressure less than 120. Hypotension -Post dialysis yesterday, patient became hypotensive. -After 500cc bolus, BP improved. Today, normotensive. Diarrhea C. difficile PCR - Negative study. Diarrhea could be due to opioid withdrawal. Patient is currently on Percocet as needed. Full code. Heparin subcutaneous for DVT prophylaxis. Overall patient is currently doing well. She is tolerating diet well. Ambulating well. No chest pain, shortness of breath, fever or chills. She is being discharged home today to continue her dialysis at home. She has an appointment with her primary care physician next week. Patient requested 3-day supply of her pain medication. However, a check on the database shows she filled her prescription on 05/25/2018 for 30-day supply of pain medication. Thus, we will not prescribe any further pain medications. Time Spent with Patient Total time spent providing and/or coordinating discharge services: Greater than 30 minutes Quality: VTE Deep Vein Thrombosis/Pulmonary Embolism Present on Admission: No Exam Narrative Exam Narrative: GENERAL: Alert, NAD. SKIN: Warm and dry. HEAD: Normocephalic. EYES: No scleral icterus. No injection or drainage. NECK: Supple, trachea midline. No JVD or lymphadenopathy. CARDIOVASCULAR: Regular rate and rhythm without murmurs, gallops, or rubs. RESPIRATORY: Breath sounds equal bilaterally. No accessory muscle use. GASTROINTESTINAL: Abdomen soft, non-tender, nondistended. MUSCULOSKELETAL: No cyanosis, or edema. BACK: Nontender without obvious deformity. No CVA tenderness. Results Labs on day of discharge: Labs from last 24 hours 06/09/18 11:55 POC Glucose 100 Impressions ITS Impressions Chest X-Ray 06/07/18 07:49 CONCLUSION: Moderate congestive failure Discharge Plan Discharge Disposition Patient Disposition: 01 Discharge Home Discharge Condition Condition: Good Discharge Order Discharge Orders: Discharge Order (Routine); Ordered 06/10/18 Ordered By: Omar Scanlon Discharge Details Anticipated Discharge Date: 06/10/18 Physicians Team Primary Care Provider: Luis Bryant Attending Provider: Omar Scanlon Other Providers: Jose Wolfe Rxs /Orders / Referrals /Forms Prescriptions: Continue hydrocodone-acetaminophen 10-325 mg Tablet 1 tab PO Q4HR RF: 0 hydralazine 100 mg Tablet 100 mg PO DAILY RF: 0 omeprazole 20 mg Capsule,Delayed Release(Dr/Ec) 20 mg PO DAILY RF: 0 labetalol 300 mg Tablet 300 mg PO DAILY RF: 0 sevelamer carbonate [Renvela] 800 mg Tablet 800 mg PO QID RF: 0 Discontinued oxycodone-acetaminophen [Percocet] 5-325 mg Tablet 1 tab PO Q4HR Qty: 40 RF: 0 Referrals: Luis Bryant MD [Primary Care Provider] - See Instructions ( Within 1-2 weeks. NO ANSWER. CALL FOR AN APPOINTMENT WITH DR. BRYANT.) Status ED Status: Left Department
[2018-06-10 10:40] VITALS: O2SAT 98
[2018-06-10 11:31] VITALS: BP 98/51; PULSE 75; TEMP 98.4
== END 2018-06-10 11:43 | disposition home or self-care (01) | DRG 291 ==
LOC: NEPD 07:18 → NEDA 10:56 → N04 17:12
PROVIDERS: ADMIT Hospitalist; ATTEND Hospitalist
DX: D63.1 Anemia in chronic kidney disease; R07.9 Chest pain, unspecified; Z99.81 Dependence on supplemental oxygen; I95.9 Hypotension, unspecified; R19.7 Diarrhea, unspecified; N18.6 End stage renal disease; I50.1 Left ventricular failure, unspecified; G89.29 Other chronic pain; J44.1 Chronic obstructive pulmonary disease with (acute) exacerbation; J96.00 Acute respiratory failure, unspecified whether with hypoxia or hypercapnia; Z88.0 Allergy status to penicillin; Z95.828 Presence of other vascular implants and grafts; Z99.2 Dependence on renal dialysis; F17.210 Nicotine dependence, cigarettes, uncomplicated; I13.2 Hypertensive heart and chronic kidney disease with heart failure and with stage 5 chronic kidney disease, or end stage renal disease
CPT/HCPCS: 36600; 71010; 71045; 80053; 80074; 82550; 82805; 82948; 82962; 83520; 83880; 84484; 85025; 87493; 90774; 90784; 90935; 93005; 94150; 94640; 94664; 94665; 96374; 99285; C8952; J0886; J1644; J7040; Q4055; Q4081